=== PATIENT | female | born 2000 | race Two or more races ===

== ENCOUNTER 2022-11-16 18:51 | Emergency (ER) | payer OTHER ==
[~2022-11-16] VITALS: Ht 152.4 cm; Wt 47.6 kg
[2022-11-16] MEDS ORDERED: ONDANSETRON ODT4 MG PO (21:41)
== END 2022-11-16 23:38 | disposition home or self-care (01) ==
LOC: EMR PED 18:51 → ER 18:51 → EMR PED 19:28
DX: R11.10 Vomiting, unspecified (principal); Z91.018 Allergy to other foods